=== PATIENT | male | born 1980 | race Caucasian/White ===

== ENCOUNTER 2016-07-12 15:26 | Emergency (ER) | payer OTHER ==
[~2016-07-12] VITALS: Ht 180.3 cm; Wt 71.0 kg
[~2016-07-12 15:26] MED LIST: ATARAX,VISTARIL25 M1 PO; ATIVAN1 M1 PO; Depakote PO; ERGOCALCIF50000 UNIT PO; GABAPENTIN100 MG PO; GABAPENTIN300 MG PO; IBUPROFEN800 MG PO; INDOCIN25 MG PO; LAMOTRIGINE25 MG PO; LEVOTHYROXINE25 MCG PO; LYRICA200 MG PO; MELOXICAM15 MG PO; METFORMIN HCL500 MG PO; METHOCARBAMOL500 MG PO; OXYCODONE HCL5 MG PO; RANITIDINE HCL300 M1 PO; SEROQUEL100 MG PO; SEROQUEL50 MG PO; TRAMADOL HCL300 MG PO; TRAMADOL HCL50 MG PO; ULTRAM50 MG PO
[2016-07-12 16:41] LABS: HEMATOCRIT 43.9 % (38.0-50.0); MCH 31.4 PG (29.0-34.0); MCHC 33.7 G/DL (30.0-36.0); MCV 93.2 FL (86-99); MEAN PLAT.VOLUME 9.8 uM^3 (9.0-12.4); PLATELET COUNT 165 K/uL (156-360); RBC DIS.WIDTH-CV 13.5 % (11.8-14.6); RBC DIS.WIDTH-SD 46.5 % (39-53); RED BLOOD COUNT 4.71 M/uL (4.00-5.50); WHITE BLOOD COUNT 6.9 K/uL (4.1-10.2)
[2016-07-12 16:52] LABS: CHLORIDE 105 mEq/L (99-109); POTASSIUM 4.1 mEq/L (3.7-5.4); SODIUM 140 mEq/L (136-147)
[2016-07-12 16:54] LABS: GLUCOSE 89 mg/dL (70-99)
[2016-07-12 16:55] LABS: ANION GAP 11 MEQ/L (2-14)
[2016-07-12 16:56] LABS: TOTAL BILIRUBIN 0.7 mg/dL (0.0-1.0)
[2016-07-12 16:58] LABS: ALKALINE PHOSPHATASE 54 IU/L (3-129); GFR ESTIMATE (CALCULATED) > 59 mL/min/
[2016-07-12 16:59] LABS: UREA NITROGEN (BUN) 24 mg/dL (9-23)
[2016-07-12 17:01] LABS: LIPASE 20 U/L (1.0-51.0)
[2016-07-12 19:40] VITALS: BP 105/68
[2016-07-12] MEDS ORDERED: MACROBID100 MG PO (20:30)
[2016-07-12 20:38] LABS: ADD MIUA? NO; BILIRUBIN NEGATIVE; BLOOD NEGATIVE; COLOR YELLOW ((YELLOW)); GLUCOSE (STRIP) NEGATIVE; KETONES NEGATIVE; LEUKOCYTES NEGATIVE; NITRITE NEGATIVE; PROTEIN (STRIP) NEGATIVE; UCUL ADDED? NO; UROBILINOGEN 0.2 MG/DL (0.2-1.0)
== END 2016-07-12 21:33 | disposition home or self-care (01) ==
LOC: EME 15:26
PROVIDERS: Nurse Practitioner Family
DX: R30.0 Dysuria (principal); M79.1 Myalgia; G71.0 Muscular dystrophy; E11.9 Type 2 diabetes mellitus without complications; Z85.850 Personal history of malignant neoplasm of thyroid; Z99.89 Dependence on other enabling machines and devices; Z87.442 Personal history of urinary calculi; F17.200 Nicotine dependence, unspecified, uncomplicated; Z91.040 Latex allergy status; Z88.6 Allergy status to analgesic agent; Z88.0 Allergy status to penicillin
CPT/HCPCS: 71020; 74177; 80053; 81003; 83690; 84443; 85027; 99281; 99285; J2270; J2405; J7030

== ENCOUNTER → 2016-07-28 | Outpatient (CLI) | payer OTHER ==
[~2016-07-28] MED LIST changes: +MACROBID100 MG PO
== END | disposition home or self-care (01) ==
LOC: NUC 08:37
DX: C73 Malignant neoplasm of thyroid gland (principal)
CPT/HCPCS: 78306; A9503

== ENCOUNTER 2016-11-29 13:12 | Emergency (ER) | payer OTHER ==
[~2016-11-29] VITALS: Ht 177.8 cm; Wt 66.9 kg
[~2016-11-29 13:12] MED LIST changes: -LYRICA200 MG PO
[2016-11-29 16:00] VITALS: BP 126/89
[2016-12-02] MEDS ORDERED: OXYCODONE HCL10 MG PO (11:38)
[2016-12-02] MEDS ORDERED: MOBIC15 MG PO (11:38)
[2016-12-02] MEDS ORDERED: ERGOCALCIF50000 UNIT PO (11:41)
[2016-12-02] MEDS ORDERED: SYNTHROID175 MCG PO (11:41)
[2016-12-02] MEDS ORDERED: FLOMAX0.4 MG PO (11:42)
[2016-12-02] MEDS ORDERED: MOTRIN800 MG PO (11:43)
[2016-12-02] MEDS ORDERED: SLEEPING PILL PO (11:44)
[2016-12-02] MEDS ORDERED: LYRICA100 MG PO (11:47)
[2016-12-02] MEDS ORDERED: LYRICA200 MG PO (14:36)
== END 2016-11-29 16:01 | disposition home or self-care (01) ==
LOC: EME 13:12
DX: S16.1XXA Strain of muscle, fascia and tendon at neck level, initial encounter (principal); S40.019A Contusion of unspecified shoulder, initial encounter; V49.50XA Passenger injured in collision with unspecified motor vehicles in traffic accident, initial encounter; G71.0 Muscular dystrophy; J45.909 Unspecified asthma, uncomplicated; E11.9 Type 2 diabetes mellitus without complications; Z87.442 Personal history of urinary calculi; Z85.850 Personal history of malignant neoplasm of thyroid; F17.200 Nicotine dependence, unspecified, uncomplicated
CPT/HCPCS: 70450; 72125; 73030; 99281; 99283

== ENCOUNTER 2016-12-04 05:07 | Day surgery (SDC) | payer OTHER ==
[~2016-12-04] VITALS: Ht 180.3 cm; Wt 77.6 kg
[2016-12-04] VITALS (9 sets, daily range): BP systolic 79–130; BP diastolic 55–97
[~2016-12-04 05:07] MED LIST changes: +FLOMAX0.4 MG PO; +LYRICA100 MG PO; +LYRICA200 MG PO; +MOBIC15 MG PO; +MOTRIN800 MG PO; +OXYCODONE HCL10 MG PO; +SLEEPING PILL PO; +SYNTHROID175 MCG PO
[2016-12-04] MEDS ORDERED: ESZOPICLONE2 MG PO (06:05)
[2016-12-04] MEDS ORDERED: MS CONTIN,ORAMO15 M1 PO (06:07)
[2016-12-04] MEDS ORDERED: OXYCODONE HCL10 MG PO (10:27)
[2016-12-05 03:54] VITALS: BP 110/60
[2016-12-05 07:49] VITALS: BP 104/59
== END 2016-12-05 14:26 | disposition home or self-care (01) ==
LOC: SDC 05:07 → 2SOUTH 10:03 → ENRESERV 10:57 → 3EAST 12:05 → SDC 13:04 → 3EAST 12-05 14:26
DX: M50.122 Cervical disc disorder at C5-C6 level with radiculopathy (principal); M47.22 Other spondylosis with radiculopathy, cervical region; Z92.3 Personal history of irradiation; Z85.850 Personal history of malignant neoplasm of thyroid; G71.0 Muscular dystrophy; E11.42 Type 2 diabetes mellitus with diabetic polyneuropathy; F31.9 Bipolar disorder, unspecified; F17.210 Nicotine dependence, cigarettes, uncomplicated; J45.909 Unspecified asthma, uncomplicated; K21.9 Gastro-esophageal reflux disease without esophagitis; Z88.0 Allergy status to penicillin
CPT/HCPCS: 72040; 76000; C1713; G0378; J0330; J1100; J1170; J2250; J2270; J2300; J2405; J3010; J3370; J3480; J7120

== ENCOUNTER 2017-04-22 08:07 | Day surgery (SDC) | payer OTHER ==
[~2017-04-22] VITALS: Ht 180.3 cm; Wt 72.6 kg
[~2017-04-22 08:07] MED LIST changes: +LEVOXYL50 MCG PO; +LUNESTA2 MG PO; +MEN'S MULTI-VI1 EACH PO; +MS CONTIN,ORAMO15 M1 PO; +SYNTHROID125 MCG PO; -SYNTHROID175 MCG PO
[2017-04-22 09:11] VITALS: BP 120/73
[2017-04-22] MEDS ORDERED: OXYCODONE HCL10 MG PO (13:26)
[2017-04-22 14:10] VITALS: BP 112/65
[2017-04-22 14:40] VITALS: BP 101/71
[2017-04-22 15:40] VITALS: BP 110/72
== END 2017-04-22 15:40 | disposition home or self-care (01) ==
LOC: SDC 08:07
PROVIDERS: Neurological Surgery
DX: G56.22 Lesion of ulnar nerve, left upper limb (principal); G56.02 Carpal tunnel syndrome, left upper limb; G71.0 Muscular dystrophy; M54.12 Radiculopathy, cervical region; Z85.850 Personal history of malignant neoplasm of thyroid; F17.210 Nicotine dependence, cigarettes, uncomplicated
CPT/HCPCS: 82948; J2250; J2405; J3010; J3370

== ENCOUNTER → 2017-05-20 | Outpatient (CLI) | payer OTHER | END | disposition home or self-care (01) | DX: R13.14 Dysphagia, pharyngoesophageal phase (principal); Z98.890 Other specified postprocedural states; Z85.850 Personal history of malignant neoplasm of thyroid | CPT/HCPCS: 92611 GN; G8996 GN; G8997 GN; G8998 GN ==